=== PATIENT | male | born 1960 | race Caucasian/White ===

== ENCOUNTER 2024-06-09 13:45 | Outpatient (RCR) | payer OTHER, SELFPAY ==
--- NOTE | 2024-06-10 08:38 | STOPEVDC ---
Assessment and note entered by Ada Calix HYPOID GEAR GENERATOR Thank you for referring Donald Vasquez to [facility].? An evaluation has been completed. No further treatment is needed. Reported Pain Level Pain Score 0: Self Report Assessment ST Clinical Summary COMMUNICATION EVALUATION This patient reported that he suffered two seizures this year, one in December and one on May 21 of this year. He reports that the initial seizure contributed to some higher-level word- finding and short term memory deficits. Patient described it as: having trouble grasping out words, looking for words. He and his , who accompanied him to this evaluation, report that he has exhibited significant improvement over time from the deficits caused by both seizures. 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 He presented himself today to be evaluated in order to ensure improving skills but also he would participate in therapy tasks if indicated. The patient was presented with the [facility] Language Evaluation and the Cutler Naming Test. He performed as follows: Given the Cutler Naming Test, patient named 63/64 items correctly. Given the language evaluation, patient followed directions well except a partial issue with one of four complex directions, which he self-corrected, however no other deficits were noted in the areas of auditory comprehension and verbal expression/word-finding. Speech was 100% intelligible and language was coherent and complete. At the end of the evaluation, since patient and had reported some short term memory issues, the patient was given a written list of common memory strategies and instructed in the use of each strategy along with examples of when to use each strategy. Additionally, he was presented with a list of common memory issues that people have and asked to determine which strategies would assist in preventing each problem from occurring. These worksheets would be completed at home. Patient and voiced understanding of the strategies and plan to complete the task after d
== END 2024-06-10 16:27 | disposition home or self-care (01) ==
LOC: ANHST 13:45
DX: R41.841 Cognitive communication deficit (principal)
CPT/HCPCS: 92507; 92523